=== PATIENT | male | born 1950 | race Caucasian/White ===

== ENCOUNTER 2020-01-30 03:12 | Emergency (ER) | payer MEDICARE ==
[2020-01-30 03:17] VITALS: RESP 18; TEMP 97.9
[2020-01-30 04:18] LABS: Basophils # (A) 0.1 k/uL (0-0.2); Basophils % (A) 1 %; Eosinophils # (A) 0.2 k/uL (0-0.7); Eosinophils % (A) 4 %; HCT 44.9 % (39.0-53.0); HGB 14.5 gm/dL (13.0-17.5); Lymphocytes # (A) 1.2 k/uL (1.0-4.8); Lymphocytes % (A) 19 %; MCHC 32.3 g/dL (31.0-37.0); MCV 95.9 fL (80.0-100.0); Mean Platelet Volume 7.8; Monocytes # (A) 0.5 k/uL (0-1.0); Monocytes % (A) 8 %; Neutrophils # (A) 4.1 k/uL (1.3-7.7); Neutrophils % (A) 66 %; Platelet Count 168 k/uL (150-450); RBC 4.68 m/uL (4.30-5.90); RDW 13.8 % (11.5-15.5); WBC 6.2 k/uL (3.8-10.6)
[2020-01-30 04:27] LABS: Albumin 4.3 g/dL (3.5-5.0); Calcium 9.5 mg/dL (8.4-10.2); Potassium 4.2 mmol/L (3.5-5.1); Total Protein 7.7 g/dL (6.3-8.2)
--- NOTE | 2020-01-30 04:29 | XR ---
EXAMINATION TYPE: XR KUB DATE OF EXAM: 01/30/2020 COMPARISON: NONE HISTORY: Abdominal pain TECHNIQUE: 2 views upright FINDINGS: There is left side ureteral stent. Stent appears to be in good position. There are calcifie d granulomata in the spleen. I see no definite calculi over the kidneys. Bowel gas pattern is nonacut e. There is no evidence of intestinal obstruction or pneumoperitoneum. Fecal pattern is normal. IMPRESSION: Left ureteral stent. No evidence of urinary tract calculus.
[2020-01-30] MEDS ORDERED: HYDROmorphone 1 MG/ML 1 ML SYRINGE IVP STA (04:34)
--- NOTE | 2020-01-30 04:34 | ED ---
General Adult HPI - General Chief complaint: Abdominal Pain Stated complaint: abd pain back pain Time Seen by Provider: 01/30/20 03:37 Source: patient Mode of arrival: ambulatory Limitations: no limitations - History of Present Illness Initial comments: Néstor is a pleasant 69-year-old gentleman with a history of chronic flank pain who presents ER today for evaluation of left-sided flank pain. Patient was seen and evaluated by his urologist last week he had a left ureteral stent placed for treatment of hydronephrosis though no any stones were noted on exam. Patient reports that the stents been quite uncomfortable but tonight it became unbearable. He states he has pain in his left flank and he has a constant pressure in his bladder and an urge to urinate. Patient denies any fevers or chills. Denies nausea or vomiting. Denies diarrhea or constipation. - Related Data Home Medications Medication Instructions Recorded Confirmed Aspirin 81 mg PO DAILY 12/08/14 12/08/14 Atorvastatin [Lipitor] 40 mg PO DAILY 12/08/14 12/08/14 Clopidogrel [Plavix] 75 mg PO DAILY 12/08/14 12/08/14 Metoprolol Succinate [Toprol XL] 150 mg PO DAILY 12/08/14 12/08/14 Pantoprazole Sodium 40 mg PO DAILY 12/08/14 12/08/14 Ranolazine [Ranexa] 1,000 mg PO 12/08/14 12/08/14 amLODIPine BESYLATE [Norvasc] 5 mg PO DAILY 12/08/14 12/08/14 Previous Rx's Medication Instructions Recorded Naproxen [Naprosyn] 500 mg PO Q12HR #30 tab 12/09/14 diazePAM [Valium] 5 mg PO BID #14 tab 12/09/14 traMADol HCL [Ultram] 50 mg PO Q4HR PRN #20 tab 12/09/14 Phenazopyridine HCl [Pyridium] 200 mg PO TID #12 tablet 01/30/20 Allergies Allergy/AdvReac Type Severity Reaction Status Date / Time codeine AdvReac Nausea & Verified 01/30/20 03:17 Vomiting hydromorphone HCl AdvReac Nausea & Verified 01/30/20 03:17 [From Dilaudid] Vomiting morphine AdvReac Nausea & Verified 01/30/20 03:17 Vomiting Penicillins AdvReac Nausea & Verified 01/30/20 03:17 Vomiting Review of Systems ROS Statement: Those systems with pertinent positive or pertinent negative responses have been documented in the HPI. ROS Other: All systems not noted in ROS Statement are negative. Past Medical History Past Medical History: Coronary Artery Disease (CAD), Hyperlipidemia, Hypertension History of Any Multi-Drug Resistant Organisms: None Reported Past Surgical History: Cholecystectomy, Coronary Bypass/CABG, Heart Catheterization With Stent Additional Past Surgical History / Comment(s): Kidney stent 2019 Past Psychological History: No Psychological Hx Reported Smoking Status: Never smoker Past Alcohol Use History: None Reported Past Drug Use History: None Reported General Exam - General Exam Comments Initial Comments: Physical Exam GENERAL: Patient is well-developed and well-nourished. Patient is nontoxic and well-hydrated and is in no distress. HENT: Normocephalic, Atraumatic. EYES: PERRL, EOMI PULMONARY: Unlabored respirations. CARDIOVASCULAR: RRR Warm and well perfused extremities ABDOMEN: Left sided flank pain Bedside ultrasound reveals left kidney has mild hydronephrosis SKIN: No rashes or bruising : Deferred NEUROLOGIC: Alert and oriented Normal speech Normal gait MUSCULOSKELETAL: Moving all extremities with no apparent injury PSYCHIATRIC: No SI/HI Limitations: no limitations Course Vital Signs 01/30/20 01/30/20 03:13 06:26 Temperature 97.9 F 97.9 F Pulse Rate 75 65 Respiratory 18 18 Rate Blood Pressure 178/108 159/79 O2 Sat by Pulse 95 96 Oximetry Medical Decision Making - Medical Decision Making The patient was seen and evaluated history is obtained from patient and at bedside Patient follows with [facility] out of [facility] Patient simply last week he has persistent pain tonight became unbearable Patient's pain was treated with Dilaudid and Phenergan as patient states that Zofran has helped with his nausea in the past phenergan does. Labs are unremarkable Patient's pain was controlled with Dilaudid he was noted to be sleeping comfortably comfortable with the plan for discharge home and follow up with his urologist outpatient - Lab Data Result diagrams: 01/30/20 04:10 01/30/20 04:10 Lab Results 01/30/20 01/30/20 01/30/20 Range/Units 04:10 04:10 04:45 WBC 6.2 (3.8-10.6) k/uL RBC 4.68 (4.30-5.90) m/uL Hgb 14.5 (13.0-17.5) gm/dL Hct 44.9 (39.0-53.0) % MCV 95.9 (80.0-100.0) fL MCH 31.0 (25.0-35.0) pg MCHC 32.3 (31.0-37.0) g/dL RDW 13.8 (11.5-15.5) % Plt Count 168 (150-450) k/uL Neutrophils % 66 % Lymphocytes % 19 % Monocytes % 8 % Eosinophils % 4 % Basophils % 1 % Neutrophils # 4.1 (1.3-7.7) k/uL Lymphocytes # 1.2 (1.0-4.8) k/uL Monocytes # 0.5 (0-1.0) k/uL Eosinophils # 0.2 (0-0.7) k/uL Basophils # 0.1 (0-0.2) k/uL Sodium 142 (137-145) mmol/L Potassium 4.2 (3.5-5.1) mmol/L Chloride 106 (98-107) mmol/L Carbon Dioxide 28 (22-30) mmol/L Anion Gap 8 mmol/L BUN 22 H (9-20) mg/dL Creatinine 1.04 (0.66-1.25) mg/dL Est GFR (CKD-EPI)AfAm 84 (>60 ml/min/1.73 sqM) Est GFR (CKD-EPI)NonAf 73 (>60 ml/min/1.73 sqM) Glucose 121 H (74-99) mg/dL Calcium 9.5 (8.4-10.2) mg/dL Total Bilirubin 1.0 (0.2-1.3) mg/dL AST 39 (17-59) U/L ALT 36 (4-49) U/L Alkaline Phosphatase 116 (38-126) U/L Total Protein 7.7 (6.3-8.2) g/dL Albumin 4.3 (3.5-5.0) g/dL Lipase 194 (23-300) U/L Urine Color Red Urine Appearance Cloudy (Clear) Urine pH 6.0 (5.0-8.0) Ur Specific [place] 1.023 (1.001-1.035) Urine Protein 2+ H (Negative) Urine Glucose (UA) Negative (Negative) Urine Ketones Negative (Negative) Urine Blood Large H (Negative) Urine Nitrite Negative (Negative) Urine Bilirubin Negative (Negative) Urine Urobilinogen <2.0 (<2.0) mg/dL Ur Leukocyte Esterase Small H (Negative) Urine RBC >182 H (0-5) /hpf Urine WBC 37 H (0-5) /hpf Urine Mucus Rare H (None) /hpf Disposition Clinical Impression: Left flank pain Disposition: HOME SELF-CARE Condition: Stable Prescriptions: Phenazopyridine HCl [Pyridium] 200 mg PO TID #12 tablet Is patient prescribed a controlled substance at d/c from ED?: No Referrals: Nonstaff,Physician [Primary Care Provider] - 1-2 days
[2020-01-30] MEDS ORDERED: PROMETHAZINE INJ 6.25 MG in SODIUM CHLORIDE 0.9% 50 ML IVPB STA (04:35)
[2020-01-30 05:05] LABS: Appearance,Urine Cloudy (Clear); Bilirubin,Urine Negative (Negative); Blood,Urine Large (Negative); Color,Urine Red; Glucose,Urine (UA) Negative (Negative); Ketones,Urine Negative (Negative); Leukocyte Esterase,Urine Small (Negative); Mucus,Urine Rare /hpf; Nitrite,Urine Negative (Negative); Protein,Urine 2+ (Negative); RBC,Urine >182 /hpf (0-5); Specific Gravity,Urine 1.023 (1.001-1.035); Urobilinogen,Urine <2.0 mg/dL (<2.0); WBC,Urine 37 /hpf (0-5)
[2020-01-30] MEDS ORDERED: ONDANSETRON 4 MG ODT STARTER PACK 2 TAB BTL PO STA (05:47)
[2020-01-30] MEDS ORDERED: ACET/COD 300 MG/30 MG STARTER PACK 6 TAB BTL PO STA (05:47)
[2020-01-30 06:28] VITALS: BP 159/79; PULSE 65
== END 2020-01-30 06:28 | disposition home or self-care (01) ==
LOC: EC 03:12
DX: N13.30 Unspecified hydronephrosis (principal); I25.10 Atherosclerotic heart disease of native coronary artery without angina pectoris; E78.5 Hyperlipidemia, unspecified; I10 Essential (primary) hypertension; Z95.5 Presence of coronary angioplasty implant and graft; Z95.1 Presence of aortocoronary bypass graft; Z79.82 Long term (current) use of aspirin; Z79.02 Long term (current) use of antithrombotics/antiplatelets; Z79.899 Other long term (current) drug therapy; Z88.0 Allergy status to penicillin; Z88.5 Allergy status to narcotic agent; Z88.8 Allergy status to other drugs, medicaments and biological substances; Z96.0 Presence of urogenital implants
CPT/HCPCS: 36415; 80053; 83690; 85025; 81001; 87086; 74018; 99284; 96374; 96375; J2550; J1170; S0119